=== PATIENT | female | born 1955 | race Caucasian/White ===

== ENCOUNTER 2016-12-25 19:42 | Emergency (ER) | payer OTHER ==
[~2016-12-25] VITALS: Ht 149.9 cm; Wt 63.5 kg
[~2016-12-25 19:42] MED LIST: METF850T PO
[2016-12-25 19:58] VITALS: BP 148/67
--- NOTE | 2016-12-25 20:06 | NUR ---
BIB WHEELCHAIR TO ER BED 1
--- NOTE | 2016-12-25 20:30 | NUR ---
61Y/F PRESENTS TO ER C/O LEFT LOWER BACK PAIN SINCE LAST THURSDAY. PMH DM, NKA. PT STATES SHE WAS WALKING WHEN PAIN STARTED, PAIN IS 10/10, RADIATES DOWN LEFT LEG, PAIN IS SHARP WITH N/T. PT HAS RASH TO BL LOWER LEGS, SKIN IS INTACT, REDDENED AND DRY. PT IS AMBULATORY, AA&O X4, VSS, ER MD NOTIFIED OF PT STATUS. PT TAKES METFORMIN 2X A DAY.
[2016-12-25] MEDS ORDERED: KETOROLAC 60 MG/2 ML VIAL IM ONE (20:45)
--- NOTE | 2016-12-25 21:00 | NUR ---
PT TAKEN TO X-RAY VIA W/C
--- NOTE | 2016-12-25 21:39 | NUR ---
Patient discharged with v/s stable. Written and verbal after care instructions given and explained. Patient alert, oriented and verbalized understanding of instructions. Ambulatory with steady gait. All questions addressed prior to discharge. ID band removed. Patient advised to follow up with PMD. Rx of TRAMADOL HYDROCHLORIDE 50MG, MACROBID 1 CAP, MOTRIN 800MG given. Patient educated on indication of medication including possible reaction and side effects. Opportunity to ask questions provided and answered.
[2016-12-25 21:40] VITALS: BP 141/77
== END 2016-12-25 21:40 | disposition home or self-care (01) ==
LOC: MED 19:42
DX: M54.42 Lumbago with sciatica, left side (principal); E11.9 Type 2 diabetes mellitus without complications; R03.0 Elevated blood-pressure reading, without diagnosis of hypertension; Z79.84 Long term (current) use of oral hypoglycemic drugs
CPT/HCPCS: 72100; 73562; 81002; 81025; 82948; 96372; 99284; J1885